=== PATIENT | male | born 1995 | race Caucasian/White ===

== ENCOUNTER 2016-09-25 14:53 | Observation (INO) | payer BC ==
[~2016-09-25 14:53] MED LIST: KETOROLAC TROMETHAMINE 60 MG/2 ML (IM) VIAL IM ONE; LACTATED RINGER'S 1000 ML INJ 2,000 ML IV ONE; NEOSTIGMINE 3 MG/3 ML SYR IV ONE; ONDANSETRON HCL 4 MG/2 ML VIAL IV PUSH ONE; PHENYLEPH/NS 1000 MCG/10 ML SYR IV ONE; PROPOFOL 200 MG/20 ML AMP IV ONE
[2016-09-25 14:55] VITALS: BP 102/72; PULSE 87; RESP 15; TEMP 98.1; O2SAT 97
[2016-09-25 15:38] VITALS: O2SAT 98
[2016-09-25] MEDS ORDERED: SODIUM CHLORIDE 0.9% FLUSH 5 ML FLUSH IVF PRN ×2 (15:45→17:30)
[2016-09-25] MEDS ORDERED: MORPHINE SULFATE 4 MG/ML INJ IV PUSH ONE (15:45)
[2016-09-25 16:07] LABS: AUTOMATED NEUTROPHIL # 10.9 TH/MM3 (1.8-7.7); BASOPHIL % 0.1 % (0.0-2.0); EOSINOPHIL % 0.2 % (0.0-4.0); HEMATOCRIT 44.2 % (39.0-51.0); HEMO FLAGS DIFF FINAL; MEAN CELL VOLUME 85.6 FL (80.0-100.0); MEAN CORPUSCULAR HEMOGLOBIN 29.9 PG (27.0-34.0); MEAN CORPUSCULAR HGB CONC 34.9 % (32.0-36.0); MONO % 8.2 % (0.0-8.0); NEUT % 83.5 % (16.0-70.0); PLATELET COUNT 165 TH/MM3 (150-450); RED BLOOD COUNT 5.17 MIL/MM3 (4.50-5.90); RED CELL DISTRIBUTION WIDTH 12.2 % (11.6-17.2); WHITE BLOOD COUNT 13.1 TH/MM3 (4.0-11.0)
[2016-09-25 16:20] LABS: BLOOD, URINE NEG (NEG); COMMENT (UR) CULT NOT INDICATED; CULTURE IF INDICATED CULT NOT INDICATED; GLUCOSE,URINE NEG (NEG); KETONE, URINE NEG (NEG); MUCUS URINE FEW /lpf (OCC); NITRITE,URINE NEG (NEG); SQUAMOUS EPITHELIAL CELL URINE <1 /hpf (0-5); URINE COLOR YELLOW (YELLW/STRAW)
--- NOTE | 2016-09-25 16:27 | PD ---
HPI Chief Complaint: Abdominal Pain Time Seen by Provider: 15:29 Travel History International Travel<30 days: No Contact w/Intl Traveler<30days: No Traveled to known affect area: No History of Present Illness HPI Patient is a healthy 21-year-old male presents emergency department complaint of abdominal pain. Patient states that he has had one to 2 days of low abdominal pain primarily within the suprapubic region that radiates out to the sides bilaterally. States that it feels similar to when he had a history of ureterolithiasis but has not had any urinary symptoms today. Denies any nausea , vomiting, fevers or chills. Normal bowel movements. States pain is mild to moderate, crampy pain/pressure. PFSH Past Medical History Anxiety: Yes Tetanus Vaccination: Unknown Influenza Vaccination: No ?: Not Past Surgical History Other Surgery: Yes ("TUMORS REMOVED FROM LEFT SIDE") Social History Alcohol Use: No Tobacco Use: No Substance Use: No Allergies-Medications (Allergen,Severity, Reaction): Coded Allergies: No Known Allergies (Unverified , 09/25/16) Reported Meds & Prescriptions Reported Meds & Active Scripts Active No Active Prescriptions or Reported Medications Review of Systems Except as stated in HPI: all other systems reviewed are Neg Physical Exam Narrative GENERAL: Well-appearing male in no acute distress SKIN: Warm and dry. HEAD: Normocephalic. EYES: No scleral icterus. No injection or drainage. ENT: Mucous membranes pink and moist. NECK: Supple CARDIOVASCULAR: Regular rate and rhythm. No murmur appreciated. RESPIRATORY: No accessory muscle use. Clear to auscultation. Breath sounds equal bilaterally. GASTROINTESTINAL: Abdomen soft, suprapubic and bilateral lower quadrant tenderness to palpation. No palpable hernia GENITOURINARY: Normal external male genitalia. No testicular pain MUSCULOSKELETAL: No obvious deformities.No edema. NEUROLOGICAL: Awake and alert. Normal speech. PSYCHIATRIC: Appropriate mood and affect; insight and judgment normal. Data Data Last Documented VS Vital Signs Date Time Temp Pulse Resp B/P Pulse Ox O2 Delivery O2 Flow Rate FiO2 09/25/16 16:10 20 09/25/16 15:38 98 Room Air 09/25/16 14:55 98.1 87 102/72 Orders Basic Metabolic Panel (Bmp) (09/25/16 15:34) Complete Blood Count With Diff (09/25/16 15:34) Urinalysis - C+S If Indicated (09/25/16 15:34) Ct Abd/Pel W/O Iv Contrast (09/25/16 15:34) Iv Access Insert/Monitor (09/25/16 15:34) Ecg Monitoring (09/25/16 15:34) Oximetry (09/25/16 15:34) Morphine Inj (Morphine Inj) (09/25/16 15:45) Sodium Chloride 0.9% Flush (Ns Flush) (09/25/16 15:45) Piperacil-Tazo 4.5 Gm Premix (Zosyn 4.5 (09/25/16 17:00) Labs Laboratory Tests Test 09/25/16 15:45 White Blood Count 13.1 TH/MM3 Red Blood Count 5.17 MIL/MM3 Hemoglobin 15.5 GM/DL Hematocrit 44.2 % Mean Corpuscular Volume 85.6 FL Mean Corpuscular Hemoglobin 29.9 PG Mean Corpuscular Hemoglobin 34.9 % Concent Red Cell Distribution Width 12.2 % Platelet Count 165 TH/MM3 Mean Platelet Volume 8.6 FL Neutrophils (%) (Auto) 83.5 % Lymphocytes (%) (Auto) 8.0 % Monocytes (%) (Auto) 8.2 % Eosinophils (%) (Auto) 0.2 % Basophils (%) (Auto) 0.1 % Neutrophils # (Auto) 10.9 TH/MM3 Lymphocytes # (Auto) 1.0 TH/MM3 Monocytes # (Auto) 1.1 TH/MM3 Eosinophils # (Auto) 0.0 TH/MM3 Basophils # (Auto) 0.0 TH/MM3 CBC Comment DIFF FINAL Differential Comment Urine Color YELLOW Urine Turbidity CLEAR Urine pH 8.0 Urine Specific [place] 1.022 Urine Protein TRACE mg/dL Urine Glucose (UA) NEG mg/dL Urine Ketones NEG mg/dL Urine Occult Blood NEG Urine Nitrite NEG Urine Bilirubin NEG Urine Urobilinogen 2.0 MG/DL Urine Leukocyte Esterase NEG Urine RBC 7 /hpf Urine WBC LESS THAN 1 /hpf Urine Squamous Epithelial <1 /hpf Cells Urine Mucus FEW /lpf Microscopic Urinalysis Comment CULT NOT INDICATED Sodium Level 139 MEQ/L Potassium Level 4.0 MEQ/L Chloride Level 102 MEQ/L Carbon Dioxide Level 30.3 MEQ/L Anion Gap 7 MEQ/L Blood Urea Nitrogen 9 MG/DL Creatinine 0.76 MG/DL Estimat Glomerular Filtration 131 ML/MIN Rate Random Glucose 86 MG/DL Calcium Level 8.6 MG/DL MDM Medical Decision Making Medical Screen Exam Complete: Yes Emergency Medical Condition: Yes Medical Record Reviewed: Yes Differential Diagnosis 21-year-old male here with complaint of 2 days of low abdominal pain, primarily suprapubic on exam. Differential includes UTI, ureterolithiasis, appendicitis, mesenteric adenitis. Less likely diverticulitis. Patient does not have any exam findings to suggest torsion, hernia. Narrative Course Patient placed on monitor. Given 4 mg morphine. CBC, BMP, urinalysis showed WBC 13.1, 7 red cells in the urine. CT abdomen and pelvis showed uncomplicated acute appendicitis. Patient given dose of Zosyn and will be admitted to surgery for further management. Diagnosis Primary Impression: Appendicitis Qualified Code: K35.89 - Other acute appendicitis Admitting Information Admitting Physician Requests: Observation Scripts No Active Prescriptions or Reported Meds Rebekah Walls MD Sep 25, 2016 16:27
[2016-09-25 16:35] LABS: BICARBONATE 30.3 MEQ/L (21.0-32.0)
--- NOTE | 2016-09-25 16:51 | RADRPT ---
EXAM DATE/TIME: 09/25/2016 16:18 [facility] COMPARISON: No previous studies available for comparison. INDICATIONS : Low mid abdomen pain today. ORAL CONTRAST: No oral contrast ingested. RADIATION DOSE: 13.28 CTDIvol (mGy) MEDICAL HISTORY : Renal calculi. SURGICAL HISTORY : None. ENCOUNTER: Initial ACUITY: 1 day PAIN SCALE: 8/10 LOCATION: Abdomen TECHNIQUE: Volumetric scanning of the abdomen and pelvis was performed. Using automated exposure control and ad justment of the mA and/or kV according to patient size, radiation dose was kept as low as reasonably achievable to obtain optimal diagnostic quality images. FINDINGS: LOWER LUNGS: The visualized lower lungs are clear. LIVER: Homogeneous density without lesion. There is no dilation of the biliary tree. No calcified gallston es. SPLEEN: Normal size without lesion. PANCREAS: Within normal limits. KIDNEYS: Normal in size and shape. There is no mass, stone, or hydronephrosis. ADRENAL GLANDS: Within normal limits. VASCULAR: There is no aortic aneurysm. BOWEL/MESENTERY: The appendix is distended and indurated, especially the tip. The tip is in the presacral region. The mildly inflamed appendix crosses the right ureter which has focal urothelial thickening and/or spasm. No abscess, perforation or obstruction. ABDOMINAL WALL: Within normal limits. RETROPERITONEUM: There is no lymphadenopathy. BLADDER: No wall thickening or mass. REPRODUCTIVE: Within normal limits. INGUINAL: There is no lymphadenopathy or hernia. MUSCULOSKELETAL: Within normal limits for patient age. CONCLUSION: Uncomplicated acute appendicitis. Farhat Santoro MD on September 25, 2016 at 16:47 Board Certified Radiologist. This report was verified electronically.
[2016-09-25 17:00] VITALS: BP 105/76; PULSE 89; RESP 15; O2SAT 98
[2016-09-25] MEDS ORDERED: PIPERACIL-TAZO 4.5 GM PREMIX 100 ML IV ONE (17:00)
[2016-09-25] MEDS: LACTATED RINGER'S 1000 ML INJ 1,000 ML IV SCH ×2 (17:25→21:05)
[2016-09-25] MEDS ORDERED: NALOXONE HCL 0.4 MG/ML AMP IV PRN (17:30)
[2016-09-25] MEDS ORDERED: MORPHINE SULFATE 4 MG/ML INJ IV PUSH PRN (17:30)
[2016-09-25] MEDS ORDERED: ONDANSETRON HCL 4 MG/2 ML VIAL IV PRN (17:30)
[2016-09-25] MEDS ORDERED: ENALAPRILAT 1.25 MG/ML VIAL IV PRN (17:30)
--- NOTE | 2016-09-25 18:10 | MH ---
cc: JALYN GAGE M.D. DATE OF ADMISSION: 09/25/2016 REASON FOR ADMISSION: Acute appendicitis. HISTORY OF PRESENT ILLNESS: The patient is a 21-year-old male who started to have some lower abdominal pain yesterday that was in the suprapubic region that radiated to both sides. The patient had increasing pain today and had a previous history of ureterolithiasis and came in feeling that this was the cause. The patient has undergone workup which demonstrates WBCs of 13.[address] scan consistent with uncomplicated acute appendicitis. 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 SOCIAL HISTORY: He does not drink, smoke or use other substances. ALLERGIES: HE HAS NO KNOWN ALLERGIES. MEDICATIONS: He is taking no medications. REVIEW OF SYSTEMS: Other than the history as noted above, the review of systems is negative. PHYSICAL EXAMINATION: GENERAL: The physical exam reveals a thin male in no acute distress. VITAL SIGNS: Blood pressure 102/72, pulse 87, respirations 15, temperature 98.1. 97% saturation on room air. HEAD, EYES, EARS, NOSE, THROAT: The sclerae are nonicteric. The pupils are reactive. CHEST: Clear to auscultation. CARDIAC: Regular rate and rhythm. ABDOMEN: The abdomen is soft with some tenderness in the suprapubic region and right lower quadrant. There is no guarding or rebound. PULSES: Intact. NEUROLOGIC: Exam is nonfocal. LABORATORY DATA: Laboratory values demonstrate WBCs of 13.1 as noted above, hemoglobin is 15.5, platelets are 165,000. Chemistries: BUN and creatinine are normal at 9 and 0.76, potassium is 4.0, random glucose is 86. ASSESSMENT: Acute appendicitis without perforation at this time. PLAN: I have spoken with the operating room and as soon as a room becomes available, he will be going to the operating room this evening. The patient has been ordered to receive antibiotic. I discussed risks of surgery with the patient and his and her significant other including but not limited to bleeding, infection, abscess formation requiring drainage, and intestinal leakage as well as adhesion formation. I have discussed remedies consequences, alternatives, and convalescence; he vocalizes understanding and agrees to proceed. MD AUTUMN Martinez/JCFaina /5:35 PM /5:48 PM
[2016-09-25 19:09] VITALS: BP 103/64; PULSE 93; RESP 18; O2SAT 98
[2016-09-25] MEDS ORDERED: MIDAZOLAM HCL 2 MG/2 ML VIAL ONE (20:21)
--- NOTE | 2016-09-25 20:41 | HHI.PR ---
cc: Osei Crespo MD Immediate Post Op Note Procedure Date: Sep 25, 2016 Pre Op Diagnosis: Acute appendicitis Post Op Diagnosis: Acute appendicitis without perforation Surgeon: Osei Crespo Slasher Tender(s): Bindu Saunders CST Procedure: Laparoscopic appendectomy Complications: None Specimen(s) removed: Appendix to pathology Estimated blood loss: <10 ml Anesthesia: General Drains: None IVF (1500 ml) Patient to: PACU Patient Condition: Good Date/Time of Procedure: SEE SURGICAL CARE RECORD Osei Crespo MD Sep 25, 2016 20:41
[2016-09-25] MEDS ORDERED: NORC5TAB PO (20:42)
[2016-09-25] MEDS ORDERED: ACETAMINOPHEN/HYDROcodone 325 MG/5 MG TAB PO PRN ×2 (20:45)
[2016-09-25] MEDS ORDERED: DO NOT ADM ANY ANTICOAGULANT DRUGS XX PRN (21:30)
[2016-09-25 22:00] VITALS: BP 106/50; PULSE 103; RESP 17; TEMP 97.5; O2SAT 100
[2016-09-25] MEDS ORDERED: PCA - TOTAL MG MORPHINE DELIVERED PER SHIFT SCH (22:00)
[2016-09-26 04:00] VITALS: BP 100/53; PULSE 85; RESP 17; TEMP 98.8; O2SAT 98
[2016-09-26 07:57] VITALS: BP 93/51; PULSE 78; RESP 20; TEMP 97.7; O2SAT 99
--- NOTE | 2016-09-29 09:52 | MP ---
cc: JALYN CRESPO M.D. DATE OF SURGERY 09/25/2016 PROCEDURE Laparoscopic appendectomy PREOPERATIVE DIAGNOSIS Acute appendicitis POSTOPERATIVE DIAGNOSIS Acute appendicitis without perforation ANESTHESIA General endotracheal SURGEON Jalyn Crespo MD ESTIMATED BLOOD LOSS Less than 10 mL FLUIDS 1500 Ml crystalloid COMPLICATIONS None DRAINS None SPECIMEN Appendix to pathology. FINDINGS Acute appendicitis without evidence of perforation. PROCEDURE IN DETAIL The patient was taken to the operating room and placed on the operating table in the supine position. After an adequate level of general endotracheal anesthesia was achieved, the abdomen was prepped and draped in the field. Time-out was taken confirming the correct patient, site, and procedure to be performed. The skin and subcutaneous tissue was infiltrated with local anesthetic and an incision made in the umbilicus and carried through the fascia sharply. The peritoneal cavity was directly visualized. A 12 mm balloon trocar was inserted and the balloon inflated. The abdomen was insufflated and the patient was placed in Trendelenburg position. A 5 mm 30 degrees laparoscope was inserted and the abdomen visualized. Two 5 mm trocars were then placed with the first in the right lower quadrant and the second one in the suprapubic region. Both entered the abdominal cavity under direct vision uneventfully. The cecum was then visualized and the appendix was seen to be coursing down towards the pelvis. This was mobilized up with both gentle blunt dissection and use of the harmonic scalpel. As this was dissected upward, the mesoappendix was dissected off with the harmonic scalpel and divided in a bloodless plane. Dissection was carried back to the base of the appendix at which point a 0-PDS Endoloop was slipped over the appendix and cinched down at the base. The appendix was then divided 1 cm distal to this. The appendix was placed into an EndoCatch device and removed via the umbilical port while observing via the 5 mm right lower quadrant trocar site. The appendix was passed off the table. The pelvis and the right lower quadrant were then visualized and the stump was irrigated. All irrigation was aspirated from the pelvis and the right lower quadrant. The appendiceal stump and mesoappendix were both seen to be clean and dry. Insufflation was then discontinued and the 5-mm trocars were removed under direct vision. No bleeding was noted from the trocar sites. The laparoscope and umbilical port were then removed. The fascia was closed in the umbilicus with 0 Vicryl suture in a simple interrupted and [id number]-[id number] fashion. When this was completed, the remaining local anesthetic was injected into all of the trocar sites. The skin was closed at all three sites with 4-0 Vicryl in an interrupted buried fashion. All sites were dressed with Steri-Strips. The patient was extubated and taken back to the recovery room in stable condition. Sponge and needle counts were reported be correct. MD AUTUMN Martinez/JOCE /8:49 PM /8:49 AM
== END 2016-09-26 09:24 | disposition home or self-care (01) ==
LOC: NEPA 14:53 → NEDA 16:59 → N07A 21:47
PROVIDERS: ADMIT Surgery Trauma Surgery; ATTEND Surgery Trauma Surgery
DX: K35.80 Unspecified acute appendicitis (principal); F41.9 Anxiety disorder, unspecified
CPT/HCPCS: 00840; 44970; 74176; 80048; 81001; 85025; 88304; 96374; 99285; G0378; J1885; J2250; J2270; J2370; J2405; J2543; J2710; J3010; J7120

== ENCOUNTER 2016-11-28 20:08 | Emergency (ER) | payer BC ==
[~2016-11-28] VITALS: Ht 175.3 cm; Wt 75.0 kg
[~2016-11-28 20:08] MED LIST changes: -KETOROLAC TROMETHAMINE 60 MG/2 ML (IM) VIAL IM ONE; -LACTATED RINGER'S 1000 ML INJ 2,000 ML IV ONE; -NEOSTIGMINE 3 MG/3 ML SYR IV ONE; +NORC5TAB PO; -ONDANSETRON HCL 4 MG/2 ML VIAL IV PUSH ONE; -PHENYLEPH/NS 1000 MCG/10 ML SYR IV ONE; -PROPOFOL 200 MG/20 ML AMP IV ONE
[2016-11-28 20:11] VITALS: BP 153/83; PULSE 112; RESP 16; TEMP 97.7; O2SAT 100
[2016-11-28] MEDS ORDERED: BUPR150XL PO (20:26)
--- NOTE | 2016-11-28 20:30 | PD ---
HPI Chief Complaint: Cardiac Complaint Time Seen by Provider: 20:29 Travel History International Travel<30 days: No Contact w/Intl Traveler<30days: No Traveled to known affect area: No History of Present Illness HPI 21-year-old male presents to the emergency department for evaluation of palpitations that started this afternoon. Patient reports history of anxiety. He states he was started on Wellbutrin a couple weeks ago for his anxiety. Patient states that while at work, his symptoms started today. He states he felt like he was having a panic attack and his symptoms worsened. The patient denies any chest pain. No shortness of breath. No fevers or chills. No abdominal pain. He states he feels nauseated, but no vomiting. No diarrhea or constipation. The patient denies any other medical problems other than anxiety. He has no cardiac history. He has no family history of sudden cardiac before the age of 40. He's had no recent surgery or travel within the past 4 weeks. He reports no leg edema. No hemoptysis. No history DVT/PE. Patient denies any history of IV drug use. PFS Past Medical History Anxiety: Yes Past Surgical History Other Surgery: Yes ("TUMORS REMOVED FROM LEFT SIDE") Social History Alcohol Use: No Tobacco Use: No Substance Use: No Allergies-Medications (Allergen,Severity, Reaction): Coded Allergies: No Known Allergies (Unverified , 11/28/16) Reported Meds & Prescriptions Reported Meds & Active Scripts Active Reported Wellbutrin Xl 24 HR (Bupropion HCl) 150 Mg Tab 150 Mg PO DAILY Review of Systems Except as stated in HPI: all other systems reviewed are Neg Physical Exam Narrative GENERAL: Well-nourished, well-developed male patient, ambulatory. Afebrile. SKIN: Focused skin assessment warm/dry. HEAD: Normocephalic. Atraumatic. EYES: No scleral icterus. No injection or drainage. NECK: Supple, trachea midline. No JVD or lymphadenopathy. CARDIOVASCULAR: Regular rate and rhythm without murmurs, gallops, or rubs. Patient was mildly tachycardic in triage. However, upon my assessment, heart rate is in the 80s. RESPIRATORY: Breath sounds equal bilaterally. No accessory muscle use. Lungs sounds are clear to auscultation GASTROINTESTINAL: Abdomen soft, non-tender, nondistended. MUSCULOSKELETAL: No cyanosis, or edema. BACK: Nontender without obvious deformity. No CVA tenderness. Data Data Last Documented VS Vital Signs Date Time Temp Pulse Resp B/P Pulse Ox O2 Delivery O2 Flow Rate FiO2 11/28/16 20:11 97.7 112 16 153/83 100 Room Air Orders Electrocardiogram (11/28/16 ) Chest, Single Ap (11/28/16 ) Hydroxyzine Pamoate (Vistaril) (11/28/16 20:30) MDM Medical Decision Making Medical Screen Exam Complete: Yes Emergency Medical Condition: Yes Medical Record Reviewed: Yes Interpretation(s) Last Impressions Chest X-Ray 11/28/16 0000 Signed Impressions: Service Date/Time: Monday, November 28, 2016 20:44 - CONCLUSION: No acute disease. Alonzo Springer MD FACR Differential Diagnosis Anxiety versus panic attack versus arrhythmia Narrative Course 21-year-old male was to the emergency department for evaluation of palpitations. He has history of anxiety. Patient does appear anxious on exam. He has no chest pain. He is PERC negative. EKG and chest x-ray are ordered and pending. Patient is given Vistaril 50 mg by mouth for anxiety. EKG shows SR, HR 92, no acute ST changes. Chest x-ray shows no acute disease. Symptoms and physical are most consistent with anxiety. I do not suspect an acute medical condition at this time. The patient will be discharged a short- term prescription for Vistaril. Upon reexamination, he states he feels much better. The patient is to follow-up with his primary care physician. He is to return for any acute worsening of symptoms. He verbalizes agreement and understanding. The patient was discharged in stable condition with instructions, including return instructions and follow up instructions. Diagnosis Primary Impression: Anxiety Referrals: Primary Care Physician call for appointment Patient Instructions: Anxiety (ED), General Instructions Additional Instructions: Take Vistaril as directed as needed for anxiety. Follow-up with your primary care physician. Return to the emergency department for any acute worsening of symptoms. Med/Other Pt SpecificInfo: Prescription(s) given Scripts Hydroxyzine Pamoate (Vistaril)50 Mg Cap50 Mg PO QID PRN (ANXIETY) #20 CAP Ref 0 Prov:Fatou Johnson 11/28/16 Disposition: 01 DISCHARGE HOME Condition: Stable Fatou Johnson November 28, 2016 20:30
--- NOTE | 2016-11-28 20:58 | RADRPT ---
EXAM DATE/TIME: 11/28/2016 20:44 [facility] COMPARISON: No previous studies available for comparison. INDICATIONS : Shortness of breath, palpitations MEDICAL HISTORY : None. SURGICAL HISTORY : None. ENCOUNTER: Initial ACUITY: 1 day PAIN SCORE: 0/10 LOCATION: Bilateral chest FINDINGS: A single view of the chest demonstrates the lungs to be symmetrically aerated without evidence of mas s, infiltrate or effusion. The cardiomediastinal contours are unremarkable. Osseous structures are intact. CONCLUSION: No acute disease. Alonzo Springer MD FACR on November 28, 2016 at 20:55 Board Certified Radiologist. This report was verified electronically.
[2016-11-28] MEDS ORDERED: VIST50CA PO (21:12)
[2016-11-28 21:26] VITALS: BP 121/62
--- NOTE | 2016-11-29 16:05 | EKG ---
Date Performed: 11/28/2016 Time Performed: 20:30:30 PTAGE: 21 years EKG: Sinus rhythm RIGHT BUNDLE BRANCH BLOCK ABNORMAL ECG PREVIOUS TRACING : 1996 08.42 Compared to previous tracing, right bundle branch block is new and sinus rate is slower. DOCTOR: Ruddy Saldivar Interpretating Date/Time 11/29/2016 16:03:14
== END 2016-11-28 21:37 | disposition home or self-care (01) ==
LOC: NEPC 20:08
DX: F41.9 Anxiety disorder, unspecified (principal); I45.10 Unspecified right bundle-branch block
CPT/HCPCS: 71010; 93005